=== PATIENT | male | born 1975 | race Caucasian/White ===

== ENCOUNTER 2016-10-24 08:31 | Emergency (ER) | payer OTHER, BC ==
[~2016-10-24] VITALS: Ht 177.8 cm; Wt 97.0 kg
[~2016-10-24 08:31] MED LIST: DARV PO; NAPR550 PO; Z.0.NO CURRENT MEDS
[2016-10-24 08:34] VITALS: BP 133/101; PULSE 109; RESP 20; TEMP 98.3; O2SAT 97
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
[2016-10-24] MEDS ORDERED: TETANUS/DIPHTHERIA TOXOID ADULT 0.5 ML VIAL IM ONE (09:00)
[2016-10-24] MEDS ORDERED: ceFAZolin 2 GM PREMIX 50 ML IV ONE (09:00)
[2016-10-24 09:04] VITALS: BP 143/107; PULSE 105; RESP 18; O2SAT 97
[2016-10-24 09:08] LABS: AUTOMATED NEUTROPHIL # 9.8 TH/MM3 (1.8-7.7); BASOPHIL # 0.1 TH/MM3 (0-0.2); BASOPHIL % 0.6 % (0.0-2.0); EOSINOPHIL % 0.2 % (0.0-4.0); HEMO FLAGS DIFF FINAL; LYMPH % 14.9 % (9.0-44.0); MEAN CELL VOLUME 90.1 FL (80.0-100.0); MEAN CORPUSCULAR HEMOGLOBIN 30.8 PG (27.0-34.0); MEAN CORPUSCULAR HGB CONC 34.2 % (32.0-36.0); MONO % 9.3 % (0.0-8.0); PLATELET COUNT 229 TH/MM3 (150-450); RED BLOOD COUNT 4.88 MIL/MM3 (4.50-5.90); RED CELL DISTRIBUTION WIDTH 12.4 % (11.6-17.2); WHITE BLOOD COUNT 13.1 TH/MM3 (4.0-11.0)
[2016-10-24] MEDS: SODIUM CHLORIDE 0.9% FLUSH 10 ML FLUSH IVF PRN ×2 (09:13→10:48)
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
[2016-10-24 09:59] LABS: BICARBONATE 28.3 MEQ/L (21.0-32.0)
[2016-10-24 10:02] LABS: GLOMERULAR FILTRATION RATE 66 ML/MIN (>89)
[2016-10-24 10:03] LABS: ANION GAP 9 MEQ/L (5-15); CHLORIDE 102 MEQ/L (98-107); SODIUM (NA) 139 MEQ/L (136-145); TOTAL BILIRUBIN ADULT 1.2 MG/DL (0.2-1.0)
[2016-10-24 10:04] LABS: ALT (GPT) 42 U/L (12-78)
[2016-10-24 10:05] LABS: ALKALINE PHOSPHATASE 63 U/L (45-117)
[2016-10-24 10:08] LABS: BLOOD UREA NITROGEN 15 MG/DL (7-18)
[2016-10-24 10:09] LABS: AST (GOT) 55 U/L (15-37)
[2016-10-24] MEDS ORDERED: IOHEXOL 350 MG/ML 10 ML VIAL (for RAD DIAG) IV ONE (10:34)
[2016-10-24] MEDS ORDERED: HYDROmorphone HCL PF 1 MG/ML VIAL IV PUSH ONE (10:45)
[2016-10-24] MEDS ORDERED: ONDANSETRON HCL 4 MG/2 ML VIAL IV PUSH ONE (10:45)
[2016-10-24 10:55] VITALS: BP 163/88; PULSE 102; RESP 18; O2SAT 98
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
[2016-10-24] MEDS ORDERED: LIDOCAINE HCL 1% 50 ML VIAL INFIL ONE (11:15)
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
[2016-10-24 11:20] VITALS: RESP 18
[2016-10-24] MEDS ORDERED: AMOX875T PO (11:47)
[2016-10-24] MEDS ORDERED: IBUP-1129 PO (11:47)
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
[2016-10-24] MEDS ORDERED: ACETAMINOPHEN/HYDROcodone 325 MG/5 MG TAB PO ONE (12:30)
[2016-10-24 12:47] VITALS: BP 158/89
== END 2016-10-24 12:53 | disposition home or self-care (01) ==
LOC: PHED 08:31
DX: S01.512A Laceration without foreign body of oral cavity, initial encounter (principal); S30.1XXA Contusion of abdominal wall, initial encounter; M54.2 Cervicalgia; Z23 Encounter for immunization; V29.88XA Motorcycle rider (driver) (passenger) injured in other specified transport accidents, initial encounter
CPT/HCPCS: 12013; 70450; 70486; 71010; 72125; 74177; 80053; 85025; 90471; 90714; 96365; 96375; 99285; J0690; J1170; J2405; Q9967